=== PATIENT | male | born 1995 | race Caucasian/White ===

== ENCOUNTER 2025-03-22 07:31 | Day surgery (SDC) | payer OTHER ==
[~2025-03-22] VITALS: Ht 170.2 cm; Wt 55.3 kg
[~2025-03-22 07:31] MED LIST: Ciprofloxacin 0.3% Opth Soln 2.5 ML BTL ONE; EPINEPhrine HCl 1 MG / ML 30ML Vial ONE; Lactated Ringer's 1,000 ML IV ONE; Lidocaine 1%-Epineph 1:200000 30 ML SDV ONE
[2025-03-22] MEDS ORDERED: Lactated Ringer's 1,000 ML IV ONE (08:44)
[2025-03-22] MEDS ORDERED: MIRT15 PO (08:52)
[2025-03-22] MEDS ORDERED: propofoL 0 ML IV ONE (08:59)
[2025-03-22] MEDS ORDERED: FentaNYL Citrate 50 MCG/ML 2 ML Injection ONE (09:00)
[2025-03-22] MEDS ORDERED: Sugammadex Sodium 200 MG/2ML SDV (100 MG/ML) ONE (09:02)
--- NOTE | 2025-03-22 09:42 | NUR ---
03/22/[address] CANCELLED CASE DUE TO PASTORAL WORKER RECOMMENDING FURTHER STUDIES
== END 2025-03-22 09:52 | disposition home or self-care (01) ==
LOC: ORSCSDS 07:31
DX: H90.12 Conductive hearing loss, unilateral, left ear, with unrestricted hearing on the contralateral side (principal); H72.92 Unspecified perforation of tympanic membrane, left ear; Z53.9 Procedure and treatment not carried out, unspecified reason
CPT/HCPCS: A9270; J0171; J2704; J3010; J7120

== ENCOUNTER 2025-03-24 07:27 | Day surgery (SDC) | payer OTHER ==
[~2025-03-24 07:27] MED LIST changes: -Ciprofloxacin 0.3% Opth Soln 2.5 ML BTL ONE; -EPINEPhrine HCl 1 MG / ML 30ML Vial ONE; -Lactated Ringer's 1,000 ML IV ONE; -Lidocaine 1%-Epineph 1:200000 30 ML SDV ONE; +MIRT15 PO
== END 2025-03-24 23:00 | disposition home or self-care (01) ==
LOC: CT 07:27
DX: R07.89 Other chest pain (principal)
CPT/HCPCS: 75574; Q9967

== ENCOUNTER 2025-06-28 09:11 | Day surgery (SDC) | payer OTHER ==
[~2025-06-28] VITALS: Ht 170.2 cm; Wt 55.9 kg
[2025-06-28] MEDS ORDERED: FentaNYL Citrate 50 MCG/ML 2 ML Injection ONE (09:53)
[2025-06-28] MEDS ORDERED: Rocuronium Bromide 10 MG/ML 5ML Injection IV ONE (09:54)
[2025-06-28] MEDS ORDERED: Ondansetron HCl 2 MG / ML 2ML Vial ONE (09:54)
[2025-06-28] MEDS ORDERED: Dexamethasone Sod Phos 10 MG/ML 1ML VIAL ONE (09:54)
[2025-06-28] MEDS ORDERED: Triamcinolone Inj Susp 40 MG / ML 1ML Vial ONE (10:39)
[2025-06-28] MEDS ORDERED: Lidocaine HCl 4% 5 ML SDA ONE (10:50)
[2025-06-28] MEDS ORDERED: Sugammadex Sodium 200 MG/2ML SDV (100 MG/ML) ONE (11:28)
[2025-06-28] MEDS ORDERED: Lidocaine 2%-Epineph 1:200000 20 ML SDV INJ ONE (12:00)
--- NOTE | 2025-06-28 12:56 | NUR ---
06/28/25 1256 Marsha Stark PT SLEEPING, VSS, OPA REMOVED. PT IS DIAPHORETIC FROM MIHAI MAYES.
--- NOTE | 2025-06-28 13:29 | NUR ---
06/28/25 [address] DAVIS AT BEDSIDE
== END 2025-06-28 13:52 | disposition home or self-care (01) ==
LOC: ORSCSDS 09:11
PROVIDERS: Otolaryngology
PROC: 09U877Z Supplement Left Tympanic Membrane with Autologous Tissue Substitute, Via Natural or Artificial Opening (ICD-10-PCS; principal; 2025-06-28 10:45)
PROC: 0HB3XZZ Excision of Left Ear Skin, External Approach (ICD-10-PCS; principal; 2025-06-28 10:45)
DX: H72.92 Unspecified perforation of tympanic membrane, left ear (principal); H90.12 Conductive hearing loss, unilateral, left ear, with unrestricted hearing on the contralateral side; F32.A Depression, unspecified; Z79.899 Other long term (current) drug therapy
CPT/HCPCS: A9270; C1763; J0165; J1100; J2003; J2405; J2704; J3010; J3301; J7120

== ENCOUNTER 2025-11-08 10:09 | Emergency (ER) | payer OTHER ==
[~2025-11-08] VITALS: Ht 170.2 cm; Wt 56.7 kg
[2025-11-08] MEDS ORDERED: Ketorolac Tromethamine 30mg Vial IV ONE (10:50)
[2025-11-08 11:10] LABS: BASOPHILS ABSOLUTE AUTO 0.06 K/mm3 (0.00-0.23); BASOPHILS PERCENT AUTO 1 % (0-2); EOSINOPHILS ABSOLUTE AUTO 0.10 K/mm3 (0.00-0.68); EOSINOPHILS PERCENT AUTO 1 % (0-6); Hematocrit 44.7 % (37.0-53.0); Hemoglobin 15.0 g/dL (13.5-17.5); IMMATURE GRAN ABSOLUTE AUTO 0.04 K/mm3 (0.00-0.10); IMMATURE GRAN PERCENT AUTO 0 % (0-1); LYMPHOCYTES ABSOLUTE AUTO 2.96 K/mm3 (0.84-5.20); LYMPHOCYTES PERCENT AUTO 22 % (21-46); MONOCYTES ABSOLUTE AUTO 1.11 K/mm3 (0.16-1.47); MONOCYTES PERCENT AUTO 8 % (4-13); Mean Corpuscular HGB Conc 33.6 g/dL (31.5-36.5); Mean Corpuscular Volume 83 fL (80-100); NEUTROPHILS ABSOLUTE AUTO 8.98 K/mm3 (1.96-9.15); NEUTROPHILS PERCENT AUTO 68 % (41-73); NRBC ABSOLUTE 0.00 K/mm3 (0.00-0.02); NRBC Auto 0.0 /100 WBC (0.0-0.2); Platelet Count 309 K/mm3 (150-400); RDW Coefficient Variation 12.3 % (11.7-14.2); RDW Standard Deviation 37.0 fL (35.1-46.3)
[2025-11-08 11:30] LABS: Alanine Aminotransfer (ALT/SGP 34.0 U/L (12-78); Albumin, Blood 4.0 g/dL (3.4-5.0); Albumin/Globulin Ratio 1.2 (0.8-1.8); Anion Gap 8.0 mmol/L (3-11); Aspartate Aminotrans (AST/SGOT 27.0 U/L (12-37); Bilirubin, Total 0.4 mg/dL (0.1-1.0); Blood Urea Nitrogen 14.0 mg/dL (8-24); CO2, Blood 26.0 mmol/L (21-32); Calcium, Blood 8.9 mg/dL (8.5-10.1); Chloride, Blood 107.0 mmol/L (98-108); Creatinine, Blood 0.96 mg/dL (0.60-1.20); Globulin, Blood 3.3 g/dL (2.2-4.0); Glucose, Blood 77.0 mg/dL (70-99); Potassium, Blood 3.8 mmol/L (3.5-5.5); Sodium, Blood 137.0 mmol/L (136-145); Total Protein, Blood 7.3 g/dL (6.4-8.2)
[2025-11-08 13:39] LABS: Source, Urine Voided
[2025-11-08 13:44] LABS: Bilirubin, Urine Neg (Neg); Color, Urine Yellow (P-Yellow); Glucose Qualitative, Urine Neg (Neg); Ketones, Urine Neg (Neg); Leukocyte Esterase, Urine Neg (Neg); Protein, Urine Neg (Neg); Specific Gravity, Urine 1.015 (1.003-1.022); Urobilinogen, Urine NORM (Normal)
[2025-11-08 14:05] LABS: Red Blood Cells, Urine 0-2 /hpf (0-2); White Blood Cells, Urine 0-2 /hpf (0-5)
[2025-11-08] MEDS ORDERED: IBUP800 PO (15:06)
[2025-11-08] MEDS ORDERED: METPRE4DP PO (15:06)
== END 2025-11-08 15:34 | disposition home or self-care (01) ==
LOC: ER 10:09
PROVIDERS: Emergency Medicine
DX: M54.16 Radiculopathy, lumbar region (principal); Z79.899 Other long term (current) drug therapy
CPT/HCPCS: 74177; 80053; 81001; 83690; 85025; 96374-59; 99284-25; J1885; Q9967